=== PATIENT | female | born 1985 ===

== ENCOUNTER 2017-11-30 09:45 | Emergency (ER) | payer MEDICAID, OTHER, SELFPAY ==
[~2017-11-30] VITALS: Ht 170.2 cm; Wt 90.0 kg
[2017-11-30] MEDS ORDERED: ONDANSETRON ODT 4 MG PO ONE (10:30)
[2017-11-30] MEDS ORDERED: ONDANSETRON ODT 4 MG ONE (10:51)
[2017-11-30 11:09] LABS: BASOPHILS # (AUTO) 0.03 x10^3/uL (0-0.1); BASOPHILS % (AUTO) 0 % (0-1); EOSINOPHILS # (AUTO) 0.08 x10^3/uL (0-0.4); EOSINOPHILS % (AUTO) 1 % (1-7); LYMPHOCYTES # (AUTO) 1.54 x10^3/uL (1-3.4); LYMPHOCYTES % (AUTO) 23 % (22-44); MD NO; MEAN CORPUSCULAR HEMOGLOBIN 30.7 pg (27.0-34.8); MEAN CORPUSCULAR VOLUME 93.1 fL (80-100); MEAN PLATELET VOLUME 7.6 fL (7.4-10.4); MONOCYTES # (AUTO) 0.49 x10^3/uL (0.2-0.8); MONOCYTES % (AUTO) 7 % (2-9); NEUTROPHILS # (AUTO) 4.68 x10^3/uL (1.8-6.8); NEUTROPHILS % (AUTO) 69 % (42-75); PLATELET COUNT 283 x10^3/uL (130-400); RED BLOOD COUNT 4.41 x10^6/uL (3.82-5.3); RED CELL DISTRIBUTION WIDTH 13.2 % (9.6-15.2)
[2017-11-30 11:21] LABS: ALANINE AMINOTRANSFERASE 14 U/L (12-78); ALBUMIN 3.6 g/dL (3.4-5.0); ANION GAP 7 mmol/L (5-15); CALCIUM 8.1 mg/dL (8.5-10.1); CHLORIDE 107 mmol/L (98-107); CREATININE 0.59 mg/dL (0.55-1.02)
[2017-11-30 11:25] LABS: ALKALINE PHOSPHATASE 65 U/L (45-117); BILIRUBIN,TOTAL 0.4 mg/dL (0.2-1.0); TOTAL PROTEIN 6.9 g/dL (6.4-8.2)
[2017-11-30 11:39] LABS: MICROSCOPIC NOT IND
[2017-11-30 11:42] LABS: CULTURE INDICATED? NO
[2017-11-30] MEDS ORDERED: KETOROLAC 30 MG/1 ML IVPush ONE (12:00)
[2017-11-30] MEDS ORDERED: KETOROLAC 30 MG/1 ML IM ONE (12:00)
[2017-11-30] MEDS ORDERED: KETOROLAC 30 MG/1 ML ONE (12:08)
[2017-11-30 14:00] VITALS: BP 113/69
== END 2017-11-30 14:01 | disposition home or self-care (01) ==
LOC: ED 10:36
DX: N83.291 Other ovarian cyst, right side (principal); R10.31 Right lower quadrant pain; Z87.891 Personal history of nicotine dependence
CPT/HCPCS: 36415; 74021; 76830; 80053; 81003; 83690; 84703; 85025; 93005; 96372; 99285; J1885; Q0162

== ENCOUNTER 2017-12-05 10:06 | Emergency (ER) | payer MEDICAID ==
[~2017-12-05] VITALS: Ht 170.2 cm; Wt 87.6 kg
[2017-12-05 10:13] VITALS: BP 141/83
== END 2017-12-05 11:11 | disposition home or self-care (01) ==
LOC: ED 11:05
DX: M72.2 Plantar fascial fibromatosis (principal)
CPT/HCPCS: 99284

== ENCOUNTER 2018-05-25 20:36 | Emergency (ER) | payer OTHER ==
[~2018-05-25] VITALS: Ht 170.2 cm; Wt 94.3 kg
[2018-05-25] MEDS ORDERED: ONDA4TAB10 PO (22:09)
[2018-05-25] MEDS ORDERED: FERR-51 PO (22:09)
[2018-05-25 22:49] LABS: BASOPHILS # (AUTO) 0.05 x10^3/uL (0-0.1); BASOPHILS % (AUTO) 1 % (0-1); EOSINOPHILS # (AUTO) 0.25 x10^3/uL (0-0.4); EOSINOPHILS % (AUTO) 3 % (1-7); LYMPHOCYTES # (AUTO) 2.58 x10^3/uL (1-3.4); LYMPHOCYTES % (AUTO) 27 % (22-44); MD NO; MEAN CORPUSCULAR HEMOGLOBIN 28.1 pg (27.0-34.8); MEAN CORPUSCULAR HGB CONC 33.1 g/dL (32.4-35.8); MEAN CORPUSCULAR VOLUME 84.8 fL (80-100); MEAN PLATELET VOLUME 7.2 fL (7.4-10.4); MONOCYTES # (AUTO) 0.99 x10^3/uL (0.2-0.8); MONOCYTES % (AUTO) 10 % (2-9); NEUTROPHILS # (AUTO) 5.62 x10^3/uL (1.8-6.8); NEUTROPHILS % (AUTO) 59 % (42-75); PLATELET COUNT 311 x10^3/uL (130-400); RED BLOOD COUNT 3.67 x10^6/uL (3.82-5.3); RED CELL DISTRIBUTION WIDTH 14.2 % (9.6-15.2)
[2018-05-25 23:02] LABS: ALBUMIN 3.2 g/dL (3.4-5.0); ANION GAP 8 mmol/L (5-15); CALCIUM 7.7 mg/dL (8.5-10.1); CHLORIDE 110 mmol/L (98-107)
[2018-05-25 23:16] VITALS: BP 100/56
== END 2018-05-26 00:08 | disposition home or self-care (01) ==
LOC: ED 23:42
DX: D50.0 Iron deficiency anemia secondary to blood loss (chronic) (principal); M79.1 Myalgia
CPT/HCPCS: 36415; 80048; 82040; 84703; 85025; 93005; 99285

== ENCOUNTER 2018-07-18 18:53 | Emergency (ER) | payer OTHER ==
[~2018-07-18] VITALS: Ht 170.2 cm; Wt 96.5 kg
[~2018-07-18 18:53] MED LIST: FERR-51 PO; ONDA4TAB10 PO
[2018-07-18 20:01] LABS: BASOPHILS # (AUTO) 0.05 x10^3/uL (0-0.1); BASOPHILS % (AUTO) 1 % (0-1); EOSINOPHILS # (AUTO) 0.25 x10^3/uL (0-0.4); EOSINOPHILS % (AUTO) 4 % (1-7); LYMPHOCYTES # (AUTO) 2.37 x10^3/uL (1-3.4); LYMPHOCYTES % (AUTO) 33 % (22-44); MD NO; MEAN CORPUSCULAR HEMOGLOBIN 28.6 pg (27.0-34.8); MEAN CORPUSCULAR VOLUME 86.6 fL (80-100); MEAN PLATELET VOLUME 7.2 fL (7.4-10.4); MONOCYTES # (AUTO) 0.67 x10^3/uL (0.2-0.8); MONOCYTES % (AUTO) 9 % (2-9); NEUTROPHILS # (AUTO) 3.89 x10^3/uL (1.8-6.8); NEUTROPHILS % (AUTO) 54 % (42-75); PLATELET COUNT 265 x10^3/uL (130-400); RED BLOOD COUNT 4.41 x10^6/uL (3.82-5.3); RED CELL DISTRIBUTION WIDTH 18.1 % (9.6-15.2)
[2018-07-18 20:12] LABS: ALANINE AMINOTRANSFERASE 14 U/L (12-78); ALBUMIN 3.1 g/dL (3.4-5.0); ANION GAP 9 mmol/L (5-15); CHLORIDE 109 mmol/L (98-107); CREATININE 0.62 mg/dL (0.55-1.02)
[2018-07-18 20:17] LABS: ALKALINE PHOSPHATASE 77 U/L (45-117); TOTAL PROTEIN 6.8 g/dL (6.4-8.2)
[2018-07-18 20:18] LABS: BILIRUBIN,TOTAL < 0.1 mg/dL (0.2-1.0)
[2018-07-18] MEDS ORDERED: ONDANSETRON ODT 4 MG ONE (20:34)
[2018-07-18 20:55] LABS: CULTURE INDICATED? YES; MICROSCOPIC INDICATED
[2018-07-18] MEDS ORDERED: ONDANSETRON ODT 4 MG PO ONE (21:00)
[2018-07-18 22:34] VITALS: BP 106/66
== END 2018-07-18 22:36 | disposition home or self-care (01) ==
LOC: ED 20:21
DX: R42 Dizziness and giddiness (principal); M79.1 Myalgia
CPT/HCPCS: 36415; 80053; 81001; 84703; 85025; 87086; 93005; 99285; Q0162

== ENCOUNTER → 2018-08-03 | Outpatient (CLI) | payer OTHER ==
[~2018-08-03] MED LIST changes: +CEFAZOLIN 1,000 MG ONE; +DEXAMETHASONE 4 MG/ML, 1ML ONE; +FENTANYL PF 250 MCG/5ML ONE; +GLYCOPYRROLATE 0.4 MG/2 ML, 2ML ONE; +KETOROLAC 30 MG/1 ML ONE; +MIDAZOLAM 1 MG/ML, 2ML ONE; +NEOSTIGMINE 1 MG/ML, 10ML ONE; +None per pt; +ONDANSETRON 2MG/ML, 2ML ONE; +PROPOFOL 10 MG/ML, 20ML ONE; +ROCURONIUM 10MG/ML,5ML ONE; +SODIUM CHLORIDE 0.9% PF 10ML ONE
== END | disposition home or self-care (01) ==
LOC: STAR 15:43
PROVIDERS: ATTEND Obstetrics & Gynecology Female Pelvic Medicine and Reconstructive Surgery
DX: Z02.9 Encounter for administrative examinations, unspecified (principal)

== ENCOUNTER 2018-08-09 07:35 | Day surgery (SDC) | payer OTHER ==
[~2018-08-09] VITALS: Ht 170.2 cm; Wt 97.0 kg
[~2018-08-09 07:35] MED LIST changes: -CEFAZOLIN 1,000 MG ONE; -DEXAMETHASONE 4 MG/ML, 1ML ONE; -FENTANYL PF 250 MCG/5ML ONE; -GLYCOPYRROLATE 0.4 MG/2 ML, 2ML ONE; -KETOROLAC 30 MG/1 ML ONE; -MIDAZOLAM 1 MG/ML, 2ML ONE; -NEOSTIGMINE 1 MG/ML, 10ML ONE; -ONDANSETRON 2MG/ML, 2ML ONE; -PROPOFOL 10 MG/ML, 20ML ONE; -ROCURONIUM 10MG/ML,5ML ONE; -SODIUM CHLORIDE 0.9% PF 10ML ONE
[2018-08-09 08:03] VITALS: BP 121/81
[2018-08-09] MEDS ORDERED: LACTATED RINGERS 1,000 ML IV SCH (08:07)
[2018-08-09 08:15] LABS: HCG UR SG 1.018 (1.003-1.030)
[2018-08-09] MEDS ORDERED: GABAPENTIN 300 MG CAPSULE PO ONE (08:30)
[2018-08-09] MEDS ORDERED: SCOPOLAMINE PATCH, 1.5MG PATCH.TD72 TD ONE (08:30)
[2018-08-09] MEDS ORDERED: OxyconTIN ER 20 MG TAB.ER PO ONE (08:30)
[2018-08-09] MEDS ORDERED: LIDOCAINE-MPF 1%, 2ML INFIL ONE (08:30)
[2018-08-09] MEDS ORDERED: ACETAMINOPHEN 500 MG TABLET PO ONE (08:30)
[2018-08-09] MEDS ORDERED: ONDANSETRON ODT 8 MG PO ONE (08:30)
[2018-08-09] MEDS ORDERED: MEPERIDINE/PF 25MG/0.5ML IVPush PRN (10:00)
[2018-08-09] MEDS ORDERED: ONDANSETRON ODT 8 MG PO PRN (10:00)
[2018-08-09] MEDS ORDERED: PROMETHAZINE 25 MG/ML, 1ML IM PRN ×2 (10:00)
[2018-08-09] MEDS ORDERED: ONDANSETRON 2MG/ML, 2ML IV PRN (10:00)
[2018-08-09] MEDS ORDERED: LABETALOL 5MG/ML, 20ML IV PRN (10:00)
[2018-08-09] MEDS ORDERED: OXYcodone 5 MG/5 ML ORAL.SOL UDC PO PRN (10:00)
[2018-08-09] MEDS ORDERED: MORPHINE SULFATE 4 MG/ML, 1ML IVPush PRN (10:00)
[2018-08-09] MEDS ORDERED: PROMETHAZINE 25 MG/ML, 1ML IV PRN (10:00)
[2018-08-09] MEDS ORDERED: hydrALAzine 20 MG/ML, 1ML IV PRN (10:00)
[2018-08-09] MEDS ORDERED: NEOSTIGMINE 1 MG/ML, 10ML ONE (10:05)
[2018-08-09] MEDS ORDERED: KETOROLAC 30 MG/1 ML ONE (10:05)
[2018-08-09] MEDS ORDERED: PROPOFOL 10 MG/ML, 20ML ONE (10:05)
[2018-08-09] MEDS ORDERED: ROCURONIUM 10 MG/ML,10ML ONE (10:05)
[2018-08-09] MEDS ORDERED: CEFAZOLIN 1,000 MG ONE (10:05)
[2018-08-09] MEDS ORDERED: DEXAMETHASONE 4 MG/ML, 1ML ONE (10:05)
[2018-08-09] MEDS ORDERED: GLYCOPYRROLATE 0.2MG/1ML, 5ML ONE (10:05)
[2018-08-09] MEDS ORDERED: ONDANSETRON 2MG/ML, 2ML ONE (10:05)
[2018-08-09] MEDS ORDERED: BUPIVACAINE/PF-EPI 0.5% 1:200K INFIL ONE (10:40)
[2018-08-09] MEDS ORDERED: NEOMY/POLYMYXIN B GU IRR. 1 ML IRRIG ONE ×2 (10:41→12:07)
[2018-08-09] MEDS ORDERED: BUPIVACAINE/PF-EPI 0.5% 1:200K ONE ×2 (12:07→12:08)
[2018-08-09] MEDS ORDERED: FENTANYL PF 100 MCG/2ML ONE (12:09)
[2018-08-09] MEDS ORDERED: OXYcodone 5 MG/5 ML ORAL.SOL UDC ONE (12:09)
[2018-08-09] MEDS ORDERED: MIDAZOLAM 1 MG/ML, 2ML ONE (12:09)
[2018-08-09] MEDS: FENTANYL PF 100 MCG/2ML IV PRN ×3 (12:13→12:43)
[2018-08-09] MEDS: MIDAZOLAM 1 MG/ML, 2ML IVPush PRN ×2 (12:19→12:36)
[2018-08-09] MEDS ORDERED: HYDROmorphone 2 MG/ML, 1ML ONE (12:48)
[2018-08-09] MEDS: HYDROmorphone 1 MG/ML, 1ML IV PRN ×2 (12:49→12:55)
[2018-08-09] MEDS ORDERED: OXYcodone/APAP 5/325MG TABLET ONE (16:18)
[2018-08-09] MEDS ORDERED: OXYcodone/APAP 5/325MG TABLET PO PRN (16:30)
== END 2018-08-09 16:30 | disposition home or self-care (01) ==
LOC: OUT 07:35
PROVIDERS: ATTEND Obstetrics & Gynecology Female Pelvic Medicine and Reconstructive Surgery
DX: D25.0 Submucous leiomyoma of uterus (principal); N71.1 Chronic inflammatory disease of uterus; N92.1 Excessive and frequent menstruation with irregular cycle; N94.6 Dysmenorrhea, unspecified; N81.89 Other female genital prolapse; N39.3 Stress incontinence (female) (male); G43.909 Migraine, unspecified, not intractable, without status migrainosus; Z98.890 Other specified postprocedural states
CPT/HCPCS: 57265; 57282; 57288; 58552; 81025; 88307; C1771; J0690; J1100; J1170; J1885; J2250; J2405; J2704; J2710; J3010; J3490; J7120; Q0162

== ENCOUNTER 2018-08-10 12:24 | Emergency (ER) | payer OTHER ==
[~2018-08-10] VITALS: Ht 170.2 cm; Wt 99.2 kg
[2018-08-10] MEDS ORDERED: ONDANSETRON 2MG/ML, 2ML ONE (13:25)
[2018-08-10] MEDS ORDERED: MORPHINE SULFATE 4 MG/ML, 1ML ONE ×2 (13:25→15:13)
[2018-08-10 13:29] LABS: BASOPHILS # (AUTO) 0.04 x10^3/uL (0-0.1); BASOPHILS % (AUTO) 0 % (0-1); EOSINOPHILS # (AUTO) 0.03 x10^3/uL (0-0.4); EOSINOPHILS % (AUTO) 0 % (1-7); LYMPHOCYTES # (AUTO) 2.43 x10^3/uL (1-3.4); LYMPHOCYTES % (AUTO) 27 % (22-44); MD NO; MEAN CORPUSCULAR HEMOGLOBIN 29.2 pg (27.0-34.8); MEAN CORPUSCULAR HGB CONC 33.2 g/dL (32.4-35.8); MEAN PLATELET VOLUME 7.1 fL (7.4-10.4); MONOCYTES # (AUTO) 0.79 x10^3/uL (0.2-0.8); MONOCYTES % (AUTO) 9 % (2-9); NEUTROPHILS # (AUTO) 5.85 x10^3/uL (1.8-6.8); NEUTROPHILS % (AUTO) 64 % (42-75); PLATELET COUNT 296 x10^3/uL (130-400); RED BLOOD COUNT 4.18 x10^6/uL (3.82-5.3); RED CELL DISTRIBUTION WIDTH 17.3 % (9.6-15.2)
[2018-08-10] MEDS: MORPHINE SULFATE 4 MG/ML, 1ML IVPush PRN ×2 (13:29→15:17)
[2018-08-10] MEDS ORDERED: ONDANSETRON ODT 4 MG PO ONE (13:30)
[2018-08-10] MEDS ORDERED: SODIUM CHLORIDE 0.9% 1,000ML IVBOLUS ONE (13:30)
[2018-08-10] MEDS ORDERED: SODIUM CHLORIDE FLUSH 10ML SYR IVF ONE (13:30)
[2018-08-10 13:39] LABS: ANION GAP 10 mmol/L (5-15); CALCIUM 7.9 mg/dL (8.5-10.1); CHLORIDE 108 mmol/L (98-107); CREATININE 0.61 mg/dL (0.55-1.02)
[2018-08-10 14:32] LABS: MICROSCOPIC AUTO
[2018-08-10 14:40] LABS: CULTURE INDICATED? YES
[2018-08-10] MEDS ORDERED: OMNIPAQUE 350 MG/ML, 100ML BOTTLE ONE (14:49)
[2018-08-10 15:44] VITALS: BP 130/4
== END 2018-08-10 17:27 ==
LOC: ED 12:53
DX: R10.31 Right lower quadrant pain (principal); R11.2 Nausea with vomiting, unspecified; Z90.710 Acquired absence of both cervix and uterus
CPT/HCPCS: 36415; 74177; 80048; 81001; 82040; 83605; 85025; 87086; 93975; 96361; 96374; 96376; 99285; J7030; Q0162; Q9967

== ENCOUNTER 2018-08-15 14:52 | Emergency (ER) | payer OTHER ==
[~2018-08-15] VITALS: Ht 170.2 cm; Wt 97.0 kg
[2018-08-15 16:32] LABS: MICROSCOPIC NOT IND
[2018-08-15 16:34] LABS: CULTURE INDICATED? NO
[2018-08-15 16:49] LABS: BASOPHILS # (AUTO) 0.03 x10^3/uL (0-0.1); BASOPHILS % (AUTO) 0 % (0-1); EOSINOPHILS # (AUTO) 0.26 x10^3/uL (0-0.4); EOSINOPHILS % (AUTO) 3 % (1-7); LYMPHOCYTES # (AUTO) 1.43 x10^3/uL (1-3.4); LYMPHOCYTES % (AUTO) 18 % (22-44); MD NO; MEAN CORPUSCULAR HEMOGLOBIN 29.1 pg (27.0-34.8); MEAN CORPUSCULAR HGB CONC 33.2 g/dL (32.4-35.8); MEAN CORPUSCULAR VOLUME 87.5 fL (80-100); MEAN PLATELET VOLUME 6.9 fL (7.4-10.4); MONOCYTES # (AUTO) 0.59 x10^3/uL (0.2-0.8); MONOCYTES % (AUTO) 7 % (2-9); NEUTROPHILS # (AUTO) 5.71 x10^3/uL (1.8-6.8); NEUTROPHILS % (AUTO) 71 % (42-75); PLATELET COUNT 348 x10^3/uL (130-400); RED BLOOD COUNT 4.53 x10^6/uL (3.82-5.3); RED CELL DISTRIBUTION WIDTH 16.6 % (9.6-15.2)
[2018-08-15 16:58] LABS: ALBUMIN 3.4 g/dL (3.4-5.0); ANION GAP 12 mmol/L (5-15); CALCIUM 8.4 mg/dL (8.5-10.1); CHLORIDE 106 mmol/L (98-107)
[2018-08-15 17:02] LABS: ALANINE AMINOTRANSFERASE 51 U/L (12-78); ALKALINE PHOSPHATASE 78 U/L (45-117); BILIRUBIN,TOTAL 0.3 mg/dL (0.2-1.0); CREATININE 0.58 mg/dL (0.55-1.02); TOTAL PROTEIN 7.3 g/dL (6.4-8.2)
[2018-08-15 17:33] VITALS: BP 116/80
== END 2018-08-15 17:41 | disposition home or self-care (01) ==
LOC: ED 17:08
DX: K59.00 Constipation, unspecified (principal); Z87.891 Personal history of nicotine dependence
CPT/HCPCS: 36415; 74021; 80053; 81003; 83690; 85025; 99285

== ENCOUNTER 2018-11-29 17:26 | Emergency (ER) | payer OTHER ==
[~2018-11-29] VITALS: Ht 170.2 cm; Wt 95.9 kg
[2018-11-29 17:34] VITALS: BP 172/98
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
--- NOTE | 2018-11-29 18:13 | NUR ---
REPORT AND CARE TO MICHAEL CLARK AT THIS TIME.
== END 2018-11-29 18:50 | disposition home or self-care (01) ==
LOC: ED 18:10
DX: M26.622 Arthralgia of left temporomandibular joint (principal); K08.89 Other specified disorders of teeth and supporting structures
CPT/HCPCS: 99283

== ENCOUNTER 2019-04-04 19:46 | Emergency (ER) | payer OTHER ==
--- NOTE | 2019-04-04 19:49 | NUR ---
PT IN BATHROOM
[2019-04-04] MEDS ORDERED: FAMOTIDINE 20 MG TABLET PO ONE (20:00)
[2019-04-04] MEDS ORDERED: ONDANSETRON ODT 4 MG PO ONE (20:00)
[2019-04-04] MEDS ORDERED: MAALOX/HYOSCYAMINE/LIDOCAINE 45 ML BTL PO ONE (20:00)
[2019-04-04 20:20] LABS: BASOPHILS # (AUTO) 0.04 x10^3/uL (0-0.1); BASOPHILS % (AUTO) 1 % (0-1); EOSINOPHILS # (AUTO) 0.11 x10^3/uL (0-0.4); EOSINOPHILS % (AUTO) 1 % (1-7); LYMPHOCYTES # (AUTO) 2.47 x10^3/uL (1-3.4); LYMPHOCYTES % (AUTO) 29 % (22-44); MD NO; MEAN CORPUSCULAR HEMOGLOBIN 30.4 pg (27.0-34.8); MEAN CORPUSCULAR HGB CONC 32.9 g/dL (32.4-35.8); MEAN CORPUSCULAR VOLUME 92.4 fL (80-100); MEAN PLATELET VOLUME 7.3 fL (7.4-10.4); MONOCYTES # (AUTO) 0.78 x10^3/uL (0.2-0.8); MONOCYTES % (AUTO) 9 % (2-9); NEUTROPHILS # (AUTO) 5.13 x10^3/uL (1.8-6.8); NEUTROPHILS % (AUTO) 60 % (42-75); PLATELET COUNT 302 x10^3/uL (130-400); RED BLOOD COUNT 4.47 x10^6/uL (3.82-5.3); RED CELL DISTRIBUTION WIDTH 13.9 % (9.6-15.2)
[2019-04-04] MEDS ORDERED: PLEASE ENTER WEIGHT MC SCH (20:30)
[2019-04-04 20:31] LABS: ALBUMIN 3.6 g/dL (3.4-5.0); ANION GAP 10 mmol/L (5-15); CALCIUM 8.2 mg/dL (8.5-10.1); CHLORIDE 109 mmol/L (98-107)
[2019-04-04 20:38] LABS: ALANINE AMINOTRANSFERASE 55 U/L (12-78); ALKALINE PHOSPHATASE 91 U/L (45-117); BILIRUBIN,TOTAL 0.3 mg/dL (0.2-1.0); CREATININE 0.76 mg/dL (0.55-1.02); TOTAL PROTEIN 7.4 g/dL (6.4-8.2)
--- NOTE | 2019-04-04 20:39 | NUR ---
pt called to room from lobby
--- NOTE | 2019-04-04 20:53 | NUR ---
PT IS NAUSEATED FOR OVER A WEEK WITH DIARRHEA. PT STATES SHE WAS VOMITING 3 DAYS AGO.
--- NOTE | 2019-04-04 21:05 | NUR ---
REPORT TO NATHANAEL CLARK
--- NOTE | 2019-04-04 21:25 | NUR ---
UA COLLECTED AND SENT TO LAB.
[2019-04-04 21:50] LABS: MICROSCOPIC NOT IND
[2019-04-04 21:55] LABS: CULTURE INDICATED? NO
--- NOTE | 2019-04-04 21:57 | NUR ---
PT TO US AT THIS TIME, FAMILY WITH PT.
[2019-04-04 22:05] VITALS: BP 115/78
[2019-04-04] MEDS ORDERED: PROMETHAZINE 25 MG/ML, 1ML ONE (22:43)
[2019-04-04] MEDS ORDERED: LORazepam 1MG TABLET ONE (22:43)
[2019-04-04] MEDS ORDERED: PROMETHAZINE 25 MG/ML, 1ML IM ONE (23:00)
[2019-04-04] MEDS ORDERED: LORazepam 1MG TABLET PO ONE (23:00)
== END 2019-04-04 22:55 | disposition home or self-care (01) ==
LOC: ED 22:31
DX: R10.13 Epigastric pain (principal); R11.2 Nausea with vomiting, unspecified; R19.7 Diarrhea, unspecified; K21.9 Gastro-esophageal reflux disease without esophagitis; Z90.710 Acquired absence of both cervix and uterus
CPT/HCPCS: 36415; 76700; 80053; 81003; 83690; 84703; 85025; 93005; 96372; 99284; J2550

== ENCOUNTER 2019-04-26 05:36 | Emergency (ER) | payer OTHER ==
[~2019-04-26] VITALS: Ht 170.2 cm; Wt 93.0 kg
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
[2019-04-26 06:31] LABS: BASOPHILS # (AUTO) 0.03 x10^3/uL (0-0.1); BASOPHILS % (AUTO) 0 % (0-1); EOSINOPHILS % (AUTO) 1 % (1-7); LYMPHOCYTES # (AUTO) 1.08 x10^3/uL (1-3.4); LYMPHOCYTES % (AUTO) 15 % (22-44); MD NO; MEAN CORPUSCULAR HEMOGLOBIN 29.7 pg (27.0-34.8); MEAN CORPUSCULAR HGB CONC 32.8 g/dL (32.4-35.8); MEAN CORPUSCULAR VOLUME 90.6 fL (80-100); MEAN PLATELET VOLUME 6.7 fL (7.4-10.4); MONOCYTES # (AUTO) 0.69 x10^3/uL (0.2-0.8); MONOCYTES % (AUTO) 10 % (2-9); NEUTROPHILS # (AUTO) 5.25 x10^3/uL (1.8-6.8); NEUTROPHILS % (AUTO) 74 % (42-75); PLATELET COUNT 317 x10^3/uL (130-400); RED BLOOD COUNT 4.69 x10^6/uL (3.82-5.3); RED CELL DISTRIBUTION WIDTH 14.1 % (9.6-15.2)
[2019-04-26] MEDS ORDERED: ONDANSETRON 2MG/ML, 2ML ONE (06:38)
[2019-04-26 06:42] LABS: MICROSCOPIC AUTO
[2019-04-26 06:43] LABS: ALANINE AMINOTRANSFERASE 23 U/L (12-78); ALBUMIN 3.7 g/dL (3.4-5.0); ANION GAP 10 mmol/L (5-15); CALCIUM 8.4 mg/dL (8.5-10.1); CHLORIDE 105 mmol/L (98-107); CREATININE 0.65 mg/dL (0.55-1.02)
[2019-04-26 06:43] LABS: CULTURE INDICATED? NO; HCG UR SG 1.011 (1.003-1.030)
[2019-04-26 06:45] LABS: ALKALINE PHOSPHATASE 85 U/L (45-117); BILIRUBIN,TOTAL 0.6 mg/dL (0.2-1.0); TOTAL PROTEIN 7.8 g/dL (6.4-8.2)
--- NOTE | 2019-04-26 06:45 | NUR ---
PT MEDICATED FOR NAUSEA PER EMAR
[2019-04-26] MEDS ORDERED: ONDANSETRON 2MG/ML, 2ML IVPush ONE (07:00)
[2019-04-26] MEDS ORDERED: SODIUM CHLORIDE 0.9% 1,000ML IVBOLUS ONE (07:00)
[2019-04-26] MEDS ORDERED: SODIUM CHLORIDE FLUSH 10ML SYR IVF ONE (07:00)
--- NOTE | 2019-04-26 07:00 | NUR ---
SBAR BEDSIDE HANDOFF REPORT RECIEVED FROM EDUARDO KIRKLAND. ASSUMING CARE OF PT.
--- NOTE | 2019-04-26 07:06 | NUR ---
REPORT GIVEN TO EDUARDO PADILLA
--- NOTE | 2019-04-26 07:48 | NUR ---
PLACED ON MONITOR, VSS, RESTING COMFORTABLY.
[2019-04-26] MEDS ORDERED: MAALOX/HYOSCYAMINE/LIDOCAINE 45 ML BTL ONE (07:53)
[2019-04-26] MEDS ORDERED: PROMETHAZINE 25 MG/ML, 1ML ONE (07:53)
[2019-04-26] MEDS ORDERED: PROMETHAZINE 25 MG/ML, 1ML IM ONE (08:00)
[2019-04-26] MEDS ORDERED: MAALOX/HYOSCYAMINE/LIDOCAINE 45 ML BTL PO ONE (08:00)
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
[2019-04-26 08:31] VITALS: BP 120/89
--- NOTE | 2019-04-26 08:33 | NUR ---
TASK RN: Patient/Caregiver given discharge instructions and they have confirmed that they understand the instructions. Patient ambulatory with steady gait.
== END 2019-04-26 08:34 | disposition home or self-care (01) ==
LOC: ED 07:30
DX: R11.2 Nausea with vomiting, unspecified (principal); R19.7 Diarrhea, unspecified; K21.9 Gastro-esophageal reflux disease without esophagitis; R51 Headache; R07.81 Pleurodynia; F17.200 Nicotine dependence, unspecified, uncomplicated; Z90.710 Acquired absence of both cervix and uterus
CPT/HCPCS: 36415; 80053; 81001; 81025; 83690; 85025; 96361; 96372; 96374; 99283; J2405; J2550; J7030

== ENCOUNTER 2021-05-17 14:19 | Emergency (ER) | payer MEDICAID, OTHER ==
[~2021-05-17] VITALS: Ht 162.6 cm; Wt 100.0 kg
[2021-05-17 14:24] VITALS: BP 126/71
[2021-05-17] MEDS ORDERED: IBUPROFEN 600 MG TABLET ONE (14:43)
[2021-05-17] MEDS ORDERED: IBUPROFEN 600 MG TABLET PO ONE (15:00)
[2021-05-17] MEDS ORDERED: HYDROcodone/APAP 5/325 TABLET ONE (16:15)
[2021-05-17] MEDS ORDERED: HYDROcodone/APAP 5/325 TABLET PO ONE (16:30)
== END 2021-05-17 17:02 | disposition home or self-care (01) ==
LOC: ED 16:26
DX: S93.492A Sprain of other ligament of left ankle, initial encounter (principal); K21.9 Gastro-esophageal reflux disease without esophagitis; X58.XXXA Exposure to other specified factors, initial encounter; Y93.89 Activity, other specified; Y92.009 Unspecified place in unspecified non-institutional (private) residence as the place of occurrence of the external cause; Y99.8 Other external cause status
CPT/HCPCS: 99283; 99284